=== PATIENT | female | born 1960 | race Caucasian/White ===

== ENCOUNTER → 2016-11-22 | Outpatient (CLI) | payer BC, OTHER | END | disposition home or self-care (01) | LOC: GMAM 11:59 | PROVIDERS: ATTEND Family Medicine | DX: E55.9 Vitamin D deficiency, unspecified (principal) ==

== ENCOUNTER → 2017-05-10 | Outpatient (CLI) | payer BC | END | disposition home or self-care (01) | LOC: GMAM 10:50 | PROVIDERS: ATTEND Family Medicine | DX: E55.9 Vitamin D deficiency, unspecified (principal) ==

== ENCOUNTER → 2017-08-13 | Outpatient (CLI) | payer BC | END | disposition home or self-care (01) | LOC: GMAM 14:17 | PROVIDERS: ATTEND Family Medicine | DX: R94.6 Abnormal results of thyroid function studies (principal) ==

== ENCOUNTER → 2018-02-11 | Outpatient (CLI) | payer OTHER ==
--- NOTE | 2018-02-11 16:22 | US ---
EXAM DESCRIPTION: Soft Tissue,Extremity: ULTRASOUND. CLINICAL HISTORY: RUPTURED BICEPS RT pain in mid right bicep region. No swelling. No pain proximal upper arm or elbow. COMPARISON: None Available. TECHNIQUE: Transcutaneous scanning: Velez-scale and Doppler modes. FINDINGS: Scanning over the region of pain in the mid right bicep region. Homogeneous subcutaneous adipose tissue and muscle fibers. No distinct solid mass or cyst. No large calcifications or parenchymal edema. No abnormal vascularity. IMPRESSION: No abnormalities in the mid right biceps muscle at the region of pain. Electronically signed by: Haroldo Pillai MD 02/11/2018 4:21 PM CDT
== END ==
LOC: US 13:46
PROVIDERS: ATTEND Family Medicine
DX: S46.111A Strain of muscle, fascia and tendon of long head of biceps, right arm, initial encounter (principal)

== ENCOUNTER → 2018-07-11 | Outpatient (CLI) | payer OTHER ==
--- NOTE | 2018-07-11 17:11 | CT ---
Procedure: CT ABDOMEN PELVIS WITHOUT IV CONTRAST Exam Date: 07/11/2018 Ordering Provider: MOISES ANAND Clinical Indication: HEMATURIA Comparison: None TECHNIQUE: 2.5mm images were taken through the abdomen and pelvis without the administration of nonionic intravenous contrast material. Oral contrast was not administered. Coronal and sagittal reformatted images were generated. This exam was performed according to our departmental dose optimization program which includes use of automated exposure control, adjustment of the mA and/or kV according to patient size and/or use of iterative reconstruction technique. FINDINGS: Lower chest: Bilateral breast implants. Visualized lung escobar are clear. Abdomen: Liver and biliary system: Multiple hepatic cysts, largest measuring 2.8 cm. No calcified gallstones. Spleen: Unremarkable Pancreas: Unremarkable Adrenal glands: Unremarkable Kidneys, ureters, bladder: No hydronephrosis in either kidney. No contour deforming renal lesions on this noncontrast examination. No urinary tract stones identified. Ureters and bladder are unremarkable. Lymph nodes: No lymphadenopathy Retroperitoneum, abdominal wall, peritoneal cavity: No ascites. No free air. Vessels: No abdominal aortic aneurysm. Pelvis: Lymph nodes: No lymphadenopathy Bowel: Large colonic stool burden. Mural thickening versus peristalsis involving the transverse colon. No bowel obstruction. Normal appendix. Pelvic organs: Prior hysterectomy. Bones: Multilevel spondylosis. IMPRESSION: 1. No findings to explain the patient's hematuria on this noncontrast examination. 2. Hepatic cysts. 3. Mural thickening versus peristalsis involving the transverse colon. This can be further evaluated with colonoscopy if not performed recently. Electronically signed by: Rajendra Miller MD 07/11/2018 5:10 PM [employer] [employer]
== END ==
LOC: CT 13:34
PROVIDERS: ATTEND Family Medicine
DX: J30.9 Allergic rhinitis, unspecified (principal); R31.21 Asymptomatic microscopic hematuria; K76.89 Other specified diseases of liver

== ENCOUNTER → 2018-11-27 | Outpatient (CLI) | payer OTHER | LOC: GMAM 13:15 | PROVIDERS: ATTEND Family Medicine | DX: E55.9 Vitamin D deficiency, unspecified (principal) ==

== ENCOUNTER → 2019-04-23 | Outpatient (CLI) | payer OTHER ==
--- NOTE | 2019-04-23 15:24 | MRI ---
Study: MRI of the Left Shoulder. Indication: PAIN IN LEFT SHOULDER Technique: Multiplanar, multi sequence MRI of the left shoulder was obtained without intravenous contrast. Comparison: None Findings: Moderate hypertrophic AC joint osteoarthritis. Mild type II acromion with mild lateral downsloping. Moderate volume subacromial/subdeltoid bursal fluid. Full-thickness, fullwidth supraspinatus tendon tear with involvement of the anterior infraspinatus tendon. Tear defect measures 28 mm AP by 27 mm transverse. Torn tendon fibers retracted to the medial margin of the acromion. Subscapularis tendinosis with intermediate grade interstitial tearing superiorly. Mild atrophy and grade 1/2 fatty infiltration rotator cuff musculature. Long head biceps tendinosis and longitudinal split tearing with partial medial subluxation onto the lesser tuberosity and into the subscapularis tendon. Circumferential labral truncation and degeneration. Mild glenohumeral joint osteoarthritis with a moderate size joint effusion. No acute fracture. 13 mm ganglion at the posterior supraspinatus masses junction. Impression: Retracted full-thickness, fullwidth supraspinatus tendon tear with involvement of the anterior infraspinatus tendon. Subscapularis tendinosis with intermediate grade interstitial tearing superiorly. Mild atrophy and grade 1/2 fatty infiltration rotator cuff musculature. Long head biceps tendinosis and longitudinal split tearing with partial medial subluxation. Circumferential labral truncation/degeneration. Mild glenohumeral joint osteoarthritis with a moderate size joint effusion. Moderate hypertrophic AC joint osteoarthritis. Electronically signed by: Maximiliano Lemons MD 04/23/2019 3:23 PM CDT
== END ==
LOC: MRI 07:40
PROVIDERS: ATTEND Nurse Practitioner Family
DX: M75.102 Unspecified rotator cuff tear or rupture of left shoulder, not specified as traumatic (principal); M75.32 Calcific tendinitis of left shoulder; M62.512 Muscle wasting and atrophy, not elsewhere classified, left shoulder; M19.012 Primary osteoarthritis, left shoulder

== ENCOUNTER 2019-05-06 05:48 | Day surgery (SDC) | payer OTHER ==
--- NOTE | 2019-04-30 20:56 | HP ---
CHIEF COMPLAINT: Left shoulder pain. HISTORY OF PRESENT ILLNESS: Dewayne is a 59 year-old female that had the acute onset of pain when she was trying to lift a jet ski on April 19, 2019. She had severe pain at that time and continues to complain of pain that is at a 6. She has been taking Advil and Aleve and they have only given her minor relief. She has had an MRI done at this time. She has pain that bothers her with activities overhead and at night. The pain bothers her on a daily basis. It is causing dysfunction in her daily activities because of the severity of the pain. She has no other history of shoulder pain or trauma to this extremity. PAST SURGICAL HISTORY: 1. section. 2. Bilateral mastectomy. 3. Hysterectomy. 4. Tubal ligation. CURRENT MEDICATIONS: 1. Advil. 2. Aleve. 3. Amlodipine. 4. Prozac. PAIN CONTRACT: None. ALLERGIES: SULFA. CODE STATUS: DO NOT RESUSCITATE. IMMUNIZATIONS: Up to date. FAMILY HISTORY: None pertinent to today's complaint. SOCIAL HISTORY: She does not smoke or use illicit drugs. She does drink on occasion. REVIEW OF SYSTEMS: Negative except as indicated in the History of Present Illness. PHYSICAL EXAMINATION: VITAL SIGNS: Blood pressure 144/82, pulse 81, height 5' 1" and weight 149. MENTAL STATUS: The patient is awake, alert, and is able to give a good history and participate in the physical. The patient is oriented to person, place and time. SKIN: Normal tone and turgor. HEENT: Normocephalic, atraumatic. Pupils equal, round and reactive. Mucosal membranes are moist. NECK: Normal range of motion. No thyromegaly, no lymphadenopathy. CHEST: Normal respiratory excursion. CARDIAC: Regular rate and rhythm. No murmurs, rubs or gallops. MUSCULOSKELETAL: The bilateral lower extremities show full active range of motion. She has intact sensation. They are warm and well perfused. There is no deformity. No malalignment. No crepitus. She walks with a normal gait. Strength is 5/5. Reflexes are 2+ and equal bilaterally. Right upper extremity shows full active range of motion without pain. She has intact sensation. It is warm and well perfused. Strength is 5/5. There is no deformity and no crepitus. The left upper extremity shows pain with range of motion of the shoulder beyond about 90 degrees. She has decreased strength in abduction and forward flexion. She has a negative belly press maneuver. She is very tender in the subacromial space. She has no crepitus with range of motion an no malalignment of the shoulder. There is no AC joint tenderness. The left elbow, wrist and digits have full active range of motion without pain. Strength in arm flexion, wrist flexion and digital flexion and extension are 5/5. Reflexes are 2+. X-RAYS: My reading on the x-rays show no acute bony abnormality. My reading on the MRI does show a tear with retraction in the supraspinatus. ASSESSMENT: 1. Rotator cuff tear. PLAN: The plan at this point is for rotator cuff repair. We have discussed the risks, benefits, and alternatives to that and she has given informed consent to proceed with that. #[id number] MTDD
[2019-05-06] MEDS ORDERED: SODIUM CHL 0.9% 100ML MINI-BAG 100 ML IVPB ONE (05:53)
[2019-05-06] MEDS ORDERED: ceFAZolin SODIUM 1 GM VIAL ONE ×2 (05:54→06:43)
[2019-05-06] MEDS ORDERED: LACTATED RINGERS 1,000 ML ONE (05:54)
[2019-05-06] MEDS ORDERED: MIDAZOLAM INJ 5 MG/5 ML VIAL ONE (06:32)
[2019-05-06] MEDS ORDERED: ACETAMINOPHEN IV 1000MG 100 ML ONE (06:32)
[2019-05-06] MEDS ORDERED: KETAMINE HCL 50 MG/ML SYG IV ONE (06:33)
[2019-05-06] MEDS ORDERED: ROCURONIUM BROMIDE 10 MG/ML VIAL ONE (06:33)
[2019-05-06] MEDS ORDERED: fentaNYL CITRATE INJ 50 MCG/ML AMP ONE (06:33)
[2019-05-06] MEDS ORDERED: BUPIVACAINE LIPOSOME 13.3 MG/ML VIAL INJ ONE ×2 (06:38→06:43)
[2019-05-06] MEDS ORDERED: VANCOMYCIN HCL INJ 1,000 MG VIAL IVPB ONE (06:43)
[2019-05-06] MEDS: BUPIVACAINE 0.5% 30 ML VIAL INJ ONE ×2 (07:50→08:44)
[2019-05-06] MEDS ORDERED: SUGAMMADEX SODIUM 200 MG/2 ML VIAL IV ONE (08:20)
[2019-05-06] MEDS ORDERED: ELECTROLYTE-A 1,000 ML IVS ONE (09:12)
[2019-05-06] MEDS ORDERED: ePHEDrine SULF 50 MG/ML IV ONE (10:00)
[2019-05-06] MEDS ORDERED: raNITIdine HCL INJ 25 MG/ML VIAL IV ONE (10:00)
[2019-05-06] MEDS ORDERED: PROPOFOL 200 MG/20 ML VIAL IV ONE (10:00)
[2019-05-06] MEDS ORDERED: LIDOCAINE 1% 10 ML VIAL INJ ONE (10:00)
[2019-05-06] MEDS ORDERED: SODIUM CHLORIDE 0.9% 50 ML VIAL INJ ONE (10:00)
[2019-05-06] MEDS ORDERED: DEXAMETHASONE INJ 10 MG/ML VIAL IV ONE (10:00)
--- NOTE | 2019-05-06 10:55 | OP ---
DATE OF PROCEDURE: 05/06/19 PREOPERATIVE DIAGNOSIS: 1. Left shoulder rotator cuff tear. POSTOPERATIVE DIAGNOSIS: 1. Left shoulder rotator cuff tear. PROCEDURE: 1. Rotator cuff repair. 2. Subacromial decompression. SURGEON: Hayder May MD. DIRECTOR OF REHABILITATION: Haroldo Saravia CST, SA-C. ANESTHESIA: General anesthesia. COMPLICATIONS: None. FINDINGS: 1. Type 2 acromion. 2. Bursitis. 3. Rotator cuff tear measuring 2.5 to 3 cm in width. INDICATION: Ms. Torrez has a history of severe shoulder pain that has been causing difficulty with daily activities. Ms. Torrez had an MRI which showed a large rotator cuff tear. She and I have talked about options for this and she chose to undergo operative fixation. After discussing the risks, benefits and alternatives to that, she gave informed consent for that. PROCEDURE: The patient was brought to the Operating Room and placed in the supine position. General anesthesia was induced and the patient's arm and shoulder were sterilely prepped and draped. Following prepping and draping, an incision was made just medial to the lateral border of the acromion. A split was made between the anterior and middle heads of the deltoid and subacromial decompression was performed. The rotator cuff was identified and adhesions were removed. Bony trough to achieve a bleeding bed of cancellous bone was made at the anatomic footprint. Four suture anchors were used to make a Speed[employer] construct to reapproximate the rotator cuff. Once that had been achieved, the arm was taken through a range of motion and the cuff was stable without undue tension. The wound was very thoroughly irrigated and the split in the deltoid was reapproximated. The skin was closed with a combination of running subcuticular stitches and Nylon. Sterile dressing was placed. The patient was placed in a sling and immobilizer. The patient was awoken from anesthesia and taken to Recovery. POSTOPERATIVE PLAN: She will be immobilized for at least one month before I start therapy just given the size of the cuff tear. I am going to see her back in 2 days for wound check. #[id number] MTDD
[2019-05-06 11:10] VITALS: TEMP 97.1
[2019-05-06 11:11] VITALS: BP 111/67; O2SAT 94
== END 2019-05-06 11:02 | disposition home or self-care (01) ==
LOC: AMB 05:48
PROVIDERS: ATTEND Orthopaedic Surgery
DX: M75.102 Unspecified rotator cuff tear or rupture of left shoulder, not specified as traumatic (principal); Z88.2 Allergy status to sulfonamides; Z90.710 Acquired absence of both cervix and uterus; Z66 Do not resuscitate; Z79.899 Other long term (current) drug therapy
CPT/HCPCS: 01630; 23420; 81001; 87070; A4216; J0690; J1100; J2250; J2780; J3010; J3370; J3490; J7050; J7120

== ENCOUNTER → 2019-10-19 | Outpatient (CLI) | payer OTHER ==
--- NOTE | 2019-10-20 19:59 | MRI ---
EXAM DESCRIPTION: Lumbar Spine w/o Contrast : Magnetic Resonance Imaging. CLINICAL HISTORY: RADICULOPATHY LUMBAR REGION COMPARISON: Lumbar radiographs October 13. TECHNIQUE: Multiplanar, multiple standard sequences, non contrast MRI, lumbar spine. FINDINGS: L5-S1: The disc is well visualized on axial T2 series 501, image 3. Moderate decrease in the disc space diffusely. Moderate endplate reactive changes anterior disc bulge and endplate ridging. Posterior midline and left paracentral hyperintense T2 weighted annular fissure in the bulging disc remnant. The disc is contacting the thecal sac and abutting the bilateral descending S1 nerve. Degenerative hypertrophy of the flavum ligaments and facet joints (posterior elements) more left than right. No significant canal narrowing. Bilateral moderate foraminal narrowing. L4-L5: Disc desiccation and minimal disc space loss. Early endplate changes. Tiny posterior midline disc bulge also to the left of midline with hyperintense T2 weighted annular fissure. Mild degenerative hypertrophy of the posterior elements. AP canal diameter 12 mm. Mild narrowing of the bilateral foramina more right than left L3-L4: Disc desiccation and mild endplate reactive changes, mostly posterior. Posterior broad-based bulge. Degenerative hypertrophy of the posterior elements. AP canal diameter 11 mm.. Mild bilateral foraminal narrowing. L2-L3: Disc desiccation anterior moderate endplate reactive changes and disc bulging posterior broad-based. Retrolisthesis 2 mm grade 1 degenerative hypertrophy of the posterior elements. AP canal diameter 10 mm. Bilateral mild foraminal narrowing, more right than left. Perineural cyst associated with the right L2 nerve just before the nerve exits the foramen. L1-L2: Extensive Modic type I endplate reactive changes involving the left two thirds of the disc space with anterior bulging and spurs. Disc spur complex is encroaching on the left foramen which is near stenotic and abutting the left L1 nerve. Right foramen is patent. Grade 1 retrolisthesis 2 mm. Left paracentral disc bulge with epidural thickening resulting in left subarticular recess stenosis encroaching on the descending left L2 nerve. Mild degenerative hypertrophy of the posterior elements with mild canal narrowing. T12-L1: Moderate disc space loss with anterior bulging and endplate ridging. Mild endplate reactive changes anteriorly. Small posterior disc bulge. Degenerative hypertrophy of the posterior elements more right than left. Mild canal narrowing. Bilateral foramina are patent. Perineural cyst on the right T12 nerve just above the entrance into the right foramen. Conus terminates at this level. Dextroscoliosis T12-L3. Paravertebral soft tissues paraspinal muscle atrophy.. Distal cord normal signal and caliber. Otherwise normal marrow signal in the remaining vertebral bodies and the posterior elements. Vertebral bodies are not compressed at any level. IMPRESSION: 1. Multiple levels of disc desiccation, endplate spondylosis, and degenerative hypertrophy of the flavum ligaments and facet joints. 2. Moderate spondylosis L5-S1 with minimal disc bulge with annular fissure. Bilateral foramina are nearly stenotic. 3. L4-L5 disc desiccation with left paracentral bulge containing annular fissure. Canal and foraminal narrowing but no stenosis. 4. L2-L3 retrolisthesis and posterior broad-based disc bulge. Borderline mild central canal stenosis. Perineural cyst associated with the right L2 nerve just above the nerve entering the foramina. 5. Extensive mild endplate reactive changes at L1-L2 involving the left two thirds of the disc space. There stenosis of the left foramen. Grade 1 retrolisthesis. Left anterior disc bulging and epidural thickening resulting in effacement of the left subarticular recess encroaching on the left L2 nerve. 6. Small posterior T12-L1 disc bulge. Paraneural cyst on the right T12 nerve just above the entrance into the right foramen. Electronically signed by: Haroldo Pillai MD 10/20/2019 7:57 PM [facility]
== END ==
LOC: MRI 08:53
PROVIDERS: ATTEND Family Medicine
DX: M51.36 Other intervertebral disc degeneration, lumbar region (principal); M47.26 Other spondylosis with radiculopathy, lumbar region; M47.27 Other spondylosis with radiculopathy, lumbosacral region; M51.85 Other intervertebral disc disorders, thoracolumbar region; M51.86 Other intervertebral disc disorders, lumbar region; M48.061 Spinal stenosis, lumbar region without neurogenic claudication; M71.38 Other bursal cyst, other site; M24.28 Disorder of ligament, vertebrae

== ENCOUNTER → 2019-12-18 | Outpatient (CLI) | payer OTHER | LOC: GMAM 11:34 | PROVIDERS: ATTEND Family Medicine | DX: E55.9 Vitamin D deficiency, unspecified (principal); I10 Essential (primary) hypertension; E78.2 Mixed hyperlipidemia ==

== ENCOUNTER → 2019-12-28 | Outpatient (CLI) | payer OTHER ==
--- NOTE | 2019-12-28 11:12 | MRI ---
EXAM DESCRIPTION: MRI right shoulder CLINICAL HISTORY: Right shoulder pain COMPARISON: None. TECHNIQUE: Multiplanar, multisequence MR images of the right shoulder FINDINGS: Complete supraspinatus tendon tear with retraction to the glenohumeral joint level. Muscle volume moderately decreased with grade 2 fatty infiltration High-grade partial articular and interstitial tear of the infraspinatus tendon anterior to mid tendon sparing thin bursal sided fibers. No tendon retraction. Muscle volume is mildly decreased with grade 1 fatty infiltration. Teres minor tendon and muscle are normal Moderate grade partial interstitial tear of the subscapularis tendon. Mild muscle volume loss with grade 2 fatty infiltration of the upper muscle Attritional tendinopathy of the biceps tendon thinning. No biceps tendon seen in the upper bicipital groove or intra-articular, complete tear adherent in the bicipital groove. Expected blunting of the labral anchor. No acute labral detachment No high-grade glenohumeral chondrosis/chronic osteochondral lesion Mild acromioclavicular osteoarthritis. Anterior lateral downsloping of the acromion with subacromial enthesophyte and contiguous inferior lateral acromial spur IMPRESSION: Complete supraspinatus tendon tear with retraction High-grade partial articular and interstitial tear of the anterior to mid infraspinatus tendon Moderate grade interstitial subscapularis tendon tear Complete biceps tendon tear superimposed on attritional tendinopathy Electronically signed by: Jer Shipley MD 12/28/2019 11:11 AM CDT
== END ==
LOC: MRI 10:19
PROVIDERS: ATTEND Family Medicine
DX: S46.211A Strain of muscle, fascia and tendon of other parts of biceps, right arm, initial encounter (principal); S46.011A Strain of muscle(s) and tendon(s) of the rotator cuff of right shoulder, initial encounter

== ENCOUNTER → 2020-01-18 | Outpatient (CLI) | payer OTHER | LOC: LAB.O 08:39 | PROVIDERS: ATTEND Orthopaedic Surgery | DX: Z01.818 Encounter for other preprocedural examination (principal) ==

== ENCOUNTER 2020-02-10 05:32 | Day surgery (SDC) | payer OTHER ==
[2020-02-10] MEDS ORDERED: SODIUM CHL 0.9% 100ML MINI-BAG 100 ML IVPB ONE (05:54)
[2020-02-10] MEDS ORDERED: LACTATED RINGERS 1,000 ML ONE (05:54)
[2020-02-10] MEDS ORDERED: ceFAZolin SODIUM 1 GM VIAL ONE (05:54)
[2020-02-10] MEDS ORDERED: MIDAZOLAM INJ 5 MG/5 ML VIAL ONE (06:27)
[2020-02-10] MEDS ORDERED: fentaNYL CITRATE INJ 50 MCG/ML 2 ML AMP ONE (06:27)
[2020-02-10] MEDS ORDERED: DEXMEDETOMIDINE HCL 200 MCG/2 ML INJ IV ONE (06:27)
[2020-02-10] MEDS ORDERED: KETAMINE HCL 100 MG/ML VIAL ONE (06:27)
[2020-02-10] MEDS ORDERED: ROCURONIUM BROMIDE 10 MG/ML VIAL ONE (06:28)
[2020-02-10] MEDS ORDERED: FAMOTIDINE INJ 10 MG/ML VIAL IV ONE (06:28)
[2020-02-10] MEDS ORDERED: SUGAMMADEX SODIUM 200 MG/2 ML VIAL IV ONE (06:29)
[2020-02-10] MEDS ORDERED: diphenhydrAMINE HCL 50 MG/ML VIAL ONE (07:00)
[2020-02-10] MEDS ORDERED: LIDOCAINE 1% 10 ML VIAL INJ ONE (07:00)
[2020-02-10] MEDS ORDERED: PROPOFOL 200 MG/20 ML VIAL IV ONE (07:00)
[2020-02-10] MEDS ORDERED: DEXAMETHASONE INJ 10 MG/ML VIAL ONE (07:00)
[2020-02-10] MEDS ORDERED: ePHEDrine SULF 50 MG/ML ONE (07:00)
[2020-02-10] MEDS ORDERED: MAGNESIUM SULFATE INJ 1 GM/2 ML VIAL ONE (07:00)
[2020-02-10] MEDS: BUPIVACAINE 0.5% 30 ML VIAL INJ ONE ×2 (07:45→08:40)
[2020-02-10] MEDS: BUPIVACAINE LIPOSOME 13.3 MG/ML VIAL INJ ONE ×2 (07:45→08:40)
[2020-02-10] MEDS: ceFAZolin SODIUM 1 GM VIAL ONE ×2 (07:45→08:29)
[2020-02-10] MEDS: VANCOMYCIN HCL INJ 1,000 MG VIAL IVPB ONE ×2 (07:46→08:29)
[2020-02-10 10:26] VITALS: BP 140/91; TEMP 98.1; O2SAT 99
--- NOTE | 2020-02-12 09:06 | OP ---
DATE OF PROCEDURE: 02/10/20 PREOPERATIVE DIAGNOSIS: 1. Rotator cuff tear, right shoulder. POSTOPERATIVE DIAGNOSIS: 1. Rotator cuff tear, right shoulder. PROCEDURE: 1. Rotator cuff repair. SURGEON: Hayder May MD. LAMP STACK DEVELOPER: Haroldo Saravia CST, SA-C. ANESTHESIA: General anesthesia. COMPLICATIONS: None. FINDINGS: Complete tear of the supraspinatus, infraspinatus and teres minor. INDICATION: Ms. Torrez has a history of severe shoulder pain. She has had injections as well as other conservative measures, however, has failed to gain relief. Because of her ongoing discomfort, she has requested operative intervention. After discussing the risks, benefits and alternatives to operative intervention, the patient has given informed consent for rotator cuff repair. PROCEDURE: The patient was brought to the Operating Room and placed in the supine position. General anesthesia was induced and the patient was transitioned into the beach chair position. Following transitioning into the beach chair position, the shoulder and arm were sterilely prepped and draped. The shoulder was approached with an incision just off the lateral border of the acromion. The anterior and middle heads of the deltoid were split and the rotator cuff was identified. The rotator cuff was fully examined and there was extensive retraction and scarring of the infraspinatus and teres minor. The supraspinatus was partially mobile. The subscapularis was frayed. Following the identification of that, a bony trough was made at the anatomic insertion. Four suture anchors were used to reapproximate the supraspinatus. The infraspinatus and teres minor were immobile and there was no way to mobilize them enough to repair them. The arm was taken through a range of motion and the partial cuff tear appeared to be stable. Therefore, the wound was very thoroughly irrigated. The deltoid was reapproximated and the skin was closed with a combination of running and interrupted subcuticular stitches. Sterile dressings were placed. The patient was placed in a sling, awoken from anesthesia and taken to Recovery. POSTOPERATIVE PLAN: She is going to be immobilized for a prolonged period just given the size of her tear. We have talked about that and she has also had similar repair and recovery on the contralateral side. She will followup with us in two days and we will further discuss her postoperative course. #[id number] [facility]
== END 2020-02-10 10:05 | disposition home or self-care (01) ==
LOC: AMB 05:32
PROVIDERS: ATTEND Orthopaedic Surgery
DX: M75.121 Complete rotator cuff tear or rupture of right shoulder, not specified as traumatic (principal); I10 Essential (primary) hypertension; I25.10 Atherosclerotic heart disease of native coronary artery without angina pectoris; Z79.899 Other long term (current) drug therapy; Z88.2 Allergy status to sulfonamides; Z85.3 Personal history of malignant neoplasm of breast
CPT/HCPCS: 01610; 23412; 80307; J0690; J1100; J1200; J2250; J3370; J3475; J3490; J7050; J7120

== ENCOUNTER → 2020-06-15 | Outpatient (CLI) | payer OTHER | LOC: GMAM 10:47 | PROVIDERS: ATTEND Family Medicine | DX: E55.9 Vitamin D deficiency, unspecified (principal); I10 Essential (primary) hypertension ==